=== PATIENT | male | born 1975 | race Caucasian/White ===

== ENCOUNTER 2018-02-06 10:17 | Outpatient (CLI) | payer OTHER | END 2018-02-06 11:12 | disposition home or self-care (01) | LOC: NUCLEAR 10:17 | DX: G45.8 Other transient cerebral ischemic attacks and related syndromes (principal); R42 Dizziness and giddiness; R07.89 Other chest pain; I11.9 Hypertensive heart disease without heart failure ==

== ENCOUNTER 2018-02-07 07:17 | Outpatient (CLI) | payer OTHER | END 2018-02-07 07:18 | disposition home or self-care (01) | LOC: NUCLEAR 07:17 | DX: R07.89 Other chest pain (principal); I11.9 Hypertensive heart disease without heart failure | CPT/HCPCS: 78452; 93017; A9500 ==

== ENCOUNTER 2021-08-24 05:00 | Day surgery (SDC) | payer OTHER ==
[~2021-08-24 05:00] MED LIST: AMLOD PO; OLMSRTN-AMLDPN1 EACH PO
== END 2021-08-24 15:00 | disposition home or self-care (01) ==
LOC: CIR.AMB 05:00
PROVIDERS: ATTEND Specialist
DX: K40.90 Unilateral inguinal hernia, without obstruction or gangrene, not specified as recurrent (principal); Z20.822 Contact with and (suspected) exposure to COVID-19